=== PATIENT | male | born 1985 | race African-American/Black ===

== ENCOUNTER 2021-06-24 07:35 | Emergency (ER) | payer OTHER ==
[2021-06-24 07:52] VITALS: BP 175/120
[2021-06-24] MEDS ORDERED: cefTRIAXone 1 GM VIAL IM STA (08:12)
[2021-06-24] MEDS ORDERED: AZITHROMYCIN 250 MG TABLET PO STA (08:12)
--- NOTE | 2021-06-24 08:14 | ED Physician Documentation ---
PD HPI MALE - Stated complaint Stated Complaint: MALE - Chief complaint Chief Complaint: UTI - History obtained from History obtained from: Patient - History of Present Illness Timing - onset: Yesterday Timing - duration: Days (1) Timing - details: Gradual onset, Still present Associated symptoms: Discharge. No: Dysuria, Urinary frequency, Unable to urinate, Hematuria, Genital sore / lesion, Testiclar pain, Scrotal swelling, Abdominal pain PD HPI MALE CONTRIB FACTORS: Sexually active, Exposed to STD Similar symptoms before: Diagnosis (chlamydia) Recently seen: Not recently seen - Additional information Additional information: Previously well 36-year-old male has been informed by his that he has been exposed to chlamydia. He denies any sores to his penis she denies any lymphadenopathy denies any scrotal mass or pain denies any swelling to his testicles states that he has a scant discharge and no symptoms. Review of Systems Constitutional: denies: Fever Ears: denies: Ear pain Nose: denies: Congestion Throat: denies: Sore throat Respiratory: denies: Cough GI: denies: Vomiting, Diarrhea : reports: Discharge. denies: Dysuria, Frequency, Hematuria Skin: denies: Rash, Lesions Musculoskeletal: denies: Neck pain, Back pain, Extremity pain Neurologic: denies: Generalized weakness, Focal weakness, Numbness PD PAST MEDICAL HISTORY - Allergies Allergies/Adverse Reactions: Allergies Allergy/AdvReac Type Severity Reaction Status Date / Time No Known Drug Allergies Allergy Verified 06/24/21 08:24 PD ED PE NORMAL - Vitals Vital signs reviewed: Yes (Hypertensive) - General General: Alert and oriented X 3, No acute distress, Well developed/nourished - HEENT HEENT: Atraumatic, PERRL, EOMI - Respiratory Respiratory: No respiratory distress - Male Male : Other (No masses or sores no adenopathy) - Derm Derm: Normal color, Warm and dry, No rash - Extremities Extremities: No deformity, No edema - Neuro Neuro: Alert and oriented X 3, general intern 2-12 intact, No motor deficit, No sensory deficit, Normal speech Eye Opening: Spontaneous Motor: Obeys Commands Verbal: Oriented GCS Score: 15 - Psych Psych: Normal mood, Normal affect Results - Vitals Vitals: Vital Signs - 24 hr 06/24/21 07:46 Temperature 37.1 C Heart Rate 74 Respiratory 15 Rate Blood Pressure 175/120 H O2 Saturation 98 Oxygen O2 Source Room air PD MEDICAL DECISION MAKING - ED course Complexity details: considered differential, d/w patient ED course: 36-year-old male with exposure to chlamydia is administered Rocephin 500 mg IM and azithromycin 1 g p.o. Departure - Departure Disposition: 01 Home, Self Care Clinical Impression: STD exposure Instructions: ED STD Male Treated Follow-Up: [facility] [Provider Group] Discharge Date/Time: 06/24/21 09:16
[2021-06-24] MEDS ORDERED: LIDOCAINE 1% 2 ML VIAL ONE (08:33)
[2021-06-24 21:59] LABS: NEISSERIA GONORRHOEAE DNA NEGATIVE (NEGATIVE)
[2021-06-24 22:18] LABS: CHLAMYDIA TRACHOMATIS DNA POSITIVE (NEGATIVE)
== END 2021-06-24 09:16 | disposition home or self-care (01) ==
LOC: ED 07:35
DX: Z20.2 Contact with and (suspected) exposure to infections with a predominantly sexual mode of transmission (principal)
CPT/HCPCS: 87491; 87591; 96372; 99283; A9270; 87661

== ENCOUNTER 2021-08-18 05:51 | Emergency (ER) | payer OTHER ==
--- NOTE | 2021-08-18 06:01 | ED Physician Documentation ---
PD HPI LOWER EXT INJURY - Stated complaint Stated Complaint: L FOOT INJ - History obtained from History obtained from: Patient - History of Present Illness PD HPI LOW EXT INJURY LOCATION: Left, Foot Type of injury: Twist (stepped on lego toy and led to inversion/twist of the foot and ankle. Pain with weight bearing at 5th MT area.) Where injury occurred: Home Timing - onset: Last night Timing - details: Abrupt onset, Still present Worsened by: Moving, Palpating, Other (weight bearing) Associated symptoms: No: Weakness, Numbness, Swelling Contributing factors: Prior ortho surgery (multiple surgeries of ankles both sides. No prior MT fractures though.) Recently seen: Not recently seen Review of Systems Skin: denies: Abrasion (s), Laceration (s) Musculoskeletal: reports: Joint pain (fell to shoulder with some soreness there, but good ROM.) Neurologic: reports: Numbness (chronic in foot due to prior ankle injuries.). denies: Focal weakness PD PAST MEDICAL HISTORY - Past Medical History Cardiovascular: None Respiratory: None Neuro: None Endocrine/Autoimmune: None - Present Medications Home Medications: Ambulatory Orders Medication Instructions Recorded Confirmed Lisinopril [Zestril] 20 mg PO DAILY 08/18/21 08/18/21 Meloxicam [Mobic] 7.5 mg PO BID 10 Days #20 tablet 08/18/21 amLODIPine [Norvasc] 5 mg PO DAILY 08/18/21 08/18/21 - Allergies Allergies/Adverse Reactions: Allergies Allergy/AdvReac Type Severity Reaction Status Date / Time No Known Drug Allergies Allergy Verified 08/18/21 06:03 - Social History Does the pt smoke?: No Smoking Status: Never smoker PD ED PE NORMAL - Vitals Vital signs reviewed: Yes - General General: Alert and oriented X 3, No acute distress, Well developed/nourished - Derm Derm: Normal color, Warm and dry - Extremities Extremities: Other (right shoulder with good ROM without limitation. Mild tender laterally. Left jack spooler tender over 5th MT area without swelling nor bruising. Ankle itself not tender. ) - Neuro Neuro: Alert and oriented X 3, No motor deficit, Normal speech Results - Vitals Vitals: Vital Signs - 24 hr 08/18/21 06:03 Temperature 36.7 C Heart Rate 90 Respiratory 16 Rate Blood Pressure 154/98 H O2 Saturation 98 Oxygen O2 Source Room air - Rads (name of study) left foot Radiology: Prelim report reviewed (no fractures), See rad report PD MEDICAL DECISION MAKING - ED course Complexity details: reviewed results, considered differential (sprain versus foot fracture, and will get xray. ), d/w patient Departure - Departure Disposition: 01 Home, Self Care Clinical Impression: Sprain of left foot Qualifiers: Encounter type: initial encounter Qualified Code(s): S93.602A - Unspecified sprain of left foot, initial encounter Condition: Stable Record reviewed to determine appropriate education?: Yes Instructions: ED Sprain Foot Prescriptions: Meloxicam [Mobic] 7.5 mg PO BID 10 Days #20 tablet Comments: Your x-ray is good without any fractures. Your foot will still be sore from a sprain and can last for several days to week or more. Use a firm soled shoe and crutches as needed for comfort. Continue usual medications. Add meloxicam anti-inflammatory twice daily with food for the next 7 to 10 days. To that add extra Tylenol if needed for pains as well. Recheck if not improved well over the next week. Discharge Date/Time: 08/18/21 07:46
[2021-08-18 06:08] VITALS: BP 154/98
[2021-08-18] MEDS ORDERED: oxyCODONE 5 MG TABLET PO STA (06:17)
[2021-08-18] MEDS ORDERED: KETOROLAC 30 MG/ML VIAL IM STA (06:17)
--- NOTE | 2021-08-18 14:38 | XRAY Report ---
PROCEDURE: Foot 3 View LT INDICATIONS: foot injury with twist/fall TECHNIQUE: 3 views of the foot were acquired. COMPARISON: None. FINDINGS: Bones: No acute fractures or dislocations. No suspicious bony lesions. Mild degenerative spurring a t the dorsal talonavicular joint. Soft tissues: No suspicious soft tissue calcifications. IMPRESSION: No acute osseous abnormality. If there is clinical concern or persistent symptoms, additional imaging such as repeat radiographs or advanced imaging (e.g. CT, MRI) may be helpful for further evaluation. There is no significant discrepancy when compared with the overnight teleradiology report. Reviewed by: Carlton Navarro MD on 08/18/2021 2:37 PM PDT Approved by: Carlton Navarro MD on 08/18/2021 2:37 PM PDT Station ID: [id number]
== END 2021-08-18 07:46 | disposition home or self-care (01) ==
LOC: ED 05:51
DX: S93.602A Unspecified sprain of left foot, initial encounter (principal); W22.8XXA Striking against or struck by other objects, initial encounter; W10.9XXA Fall (on) (from) unspecified stairs and steps, initial encounter
CPT/HCPCS: 73630; 96372; 99283; A9270